=== PATIENT | male | born 1935 | race Caucasian/White ===

== ENCOUNTER 2017-03-05 16:53 | Inpatient (IN) | payer MEDICARE, OTHER ==
[~2017-03-05 16:53] MED LIST: AMLODIPINE BESYL5 MG PO; ANACIN TABLET1 TAB; ANTIBIOTIC; ASPIR 8181 MG PO; ASPIRIN325 MG; ASPIRIN325 MG PO; AVELOX400 M1 PO; CIPRO500 MG PO; COUMADIN5 MG PO; CULTURELLE1 EAC1 PO; FINASTERIDE5 M1 PO; FINASTERIDE5 M2 PO; FORTAMET500 MG PO; HYDROCODON-ACE1 EA16 PO; HYDROCODON-ACE1 EAC1 PO; IRON1 TAB; LISINOPRIL-HCTZ PO; LISINOPRIL20 MG PO; LOSARTAN-HCTZ1 EAC6 PO; METOPROLOL TART25 M1 PO; MILK OF MA400 MG/5 M PO; NAPROXEN500 M1 PO; NORCO 5-325 TA1 EACH PO; NORCO 5/325 TAB1 TAB PO; NORCO 7.5/3251 TA1 PO; NORVASC10 M1 PO; NORVASC10 MG PO; OMEPRAZOLE PO; OXYCONTIN10 M1 PO; PREVPAC PA1 COMB.PKG PO; PRILOSEC OTC20 MG PO; PROTONIX40 M1 PO; PROTONIX40 M2 PO; SENOKOT-S TABLE1 TAB PO; ST. JOSEPH ASP325 MG; STOOL SOFTENER; STOOL SOFTENER PO; TYLENOL PM EX-1 EACH PO; TYLENOL325 M1 PO; TYLENOL325 M2 PO; ZANTAC; ZANTAC150 MG
[2017-03-05 17:25] LABS: BASO % 0.2 % (0-2); IMMATURE GRANULOCYTES ABSOLUTE 0.04 tho/cmm (0-0.03); IMMATURE GRANULOCYTES PERCENT 0.3 % (0-0.3); LYMPH % 15.3 % (20-45); LYMPH ABSOLUTE COUNT 1.8 tho/cmm (0.8-4.5); MCH (MEAN CORPUSCULAR HGB) 28.4 pg (28.0-32.0); MCHC MEAN CORPUSCULAR HGB CONC 32.5 % (32.0-36.0); MCV (MEAN CELL VOLUME) 87.5 fl (82.0-96.0); MEAN PLATELET VOLUME 10.1 cmc (9.4-12.4); MONO % 11.2 % (0-12); MONOCYTE ABSOLUTE COUNT 1.3 tho/cmm (0.0-1.2); NEUTROPHIL ABSOLUTE COUNT 8.7 tho/cmm (1.6-8.0); NEUTROPHIL-AUTOMATED 8.7 tho/cmm (1.6-8.0); PLATELET COUNT 296 tho/cmm (150-450); RED BLOOD COUNT 4.57 mil/cmm (4.40-5.70); RED CELL DISTRIBUTION WIDTH 17.7 % (12.4-16.4); WHITE BLOOD COUNT 11.9 tho/cmm (4.0-10.0)
[2017-03-05] MEDS ORDERED: ZYLOPRIM100 M1 PO (17:41)
[2017-03-05 17:42] LABS: ANION GAP 16 mmol/L (0-20); BLOOD UREA NITROGEN 32 mg/dl (6-24); CALCIUM 8.7 mg/dl (8.5-10.5); CARBON DIOXIDE-VENOUS 22 mmol/L (22-32); CHLORIDE 107 mmol/l (96-110); GLUCOSE 100 mg/dL (70-110); POTASSIUM 4.2 mmol/L (3.7-5.1); SODIUM 141 mmol/L (135-145); eGFR VALUE FOR BLACK 82 mL/Min
[2017-03-05] MEDS ORDERED: ATIVAN1 M2 PO (17:42)
[2017-03-05] MEDS ORDERED: NASAL DECONGEST30 ML (17:43)
[2017-03-05] MEDS ORDERED: MUCUS RELIEF C237 M1 PO (17:50)
[2017-03-05 18:03] LABS: PROCALCITONIN 0.32 ng/ml (0.05-0.09)
[2017-03-05 22:03] LABS: URINE BILIRUBIN SMALL (NEG); URINE BLOOD SMALL (NEG); URINE GLUCOSE (UA) NEGATIVE (NEG); URINE KETONE SMALL (NEG); URINE LEUKOCYTE ESTERASE POSITIVE (NEG); URINE NITRITE NEGATIVE (NEG); URINE PROTEIN MODERATE (NEG); URINE SPECIFIC GRAVITY 1.025 (1.003-1.030)
[2017-03-05 22:04] LABS: URINE APPEARANCE CLOUDY; URINE COLOR DARK YELLOW
[2017-03-05 22:14] LABS: URINE AMORPHOUS 1+; URINE RBC RARE /[HPF] (0-5); URINE WBC 15-20 /[HPF] (0-5)
[2017-03-06 01:10] LABS: ALB/GLOB RATIO 0.8 (0.8-2.0); ALBUMIN 2.7 g/dl (3.5-5.0); ALKALINE PHOSPHATASE 96 U/L (33-138); ALT/SGPT 26 U/L (12-78); BLOOD UREA NITROGEN 32 mg/dl (6-24); CALCIUM 8.1 mg/dl (8.5-10.5); CARBON DIOXIDE-VENOUS 15 mmol/L (22-32); CHLORIDE 105 mmol/l (96-110); CREATININE 0.91 mg/dl (0.60-1.30); GLUCOSE 106 mg/dL (70-110); SODIUM 138 mmol/L (135-145); eGFR VALUE FOR BLACK >90 mL/Min
[2017-03-06 01:18] LABS: ANION GAP 22 mmol/L (0-20)
[2017-03-06 01:19] LABS: AST/SGOT 51 U/L (10-40); POTASSIUM 4.3 mmol/L (3.7-5.1)
[2017-03-06 13:43] LABS: ALB/GLOB RATIO 0.9 (0.8-2.0); ALBUMIN 2.7 g/dl (3.5-5.0)
[2017-03-07 05:30] LABS: BASO % 0.2 % (0-2); EOS % 1.7 % (0-7); EOSINOPHIL ABSOLUTE COUNT 0.2 tho/cmm (0.0-0.7); HCT-HEMATOCRIT 39.4 % (36.0-53.5); HGB-HEMOGLOBIN 12.6 gm/dl (13.5-17.0); IMMATURE GRANULOCYTES ABSOLUTE 0.02 tho/cmm (0-0.03); IMMATURE GRANULOCYTES PERCENT 0.2 % (0-0.3); LYMPH % 27.1 % (20-45); LYMPH ABSOLUTE COUNT 2.4 tho/cmm (0.8-4.5); MCH (MEAN CORPUSCULAR HGB) 27.7 pg (28.0-32.0); MCV (MEAN CELL VOLUME) 86.6 fl (82.0-96.0); MEAN PLATELET VOLUME 10.3 cmc (9.4-12.4); MONO % 11.7 % (0-12); NEUTROPHIL ABSOLUTE COUNT 5.1 tho/cmm (1.6-8.0); NEUTROPHIL-AUTOMATED 5.1 tho/cmm (1.6-8.0); NEUTROPHILS % 59.1 % (40-80); PLATELET COUNT 263 tho/cmm (150-450); RED BLOOD COUNT 4.55 mil/cmm (4.40-5.70); RED CELL DISTRIBUTION WIDTH 17.4 % (12.4-16.4); WHITE BLOOD COUNT 8.7 tho/cmm (4.0-10.0)
[2017-03-07 05:40] LABS: BLOOD UREA NITROGEN 24 mg/dl (6-24); CALCIUM 8.2 mg/dl (8.5-10.5); CHLORIDE 101 mmol/l (96-110); CREATININE 0.79 mg/dl (0.60-1.30); GLUCOSE 111 mg/dL (70-110); SODIUM 138 mmol/L (135-145); eGFR VALUE FOR BLACK >90 mL/Min
[2017-03-07 05:54] LABS: ANION GAP 16 mmol/L (0-20); CARBON DIOXIDE-VENOUS 24 mmol/L (22-32); POTASSIUM 3.2 mmol/L (3.7-5.1)
[2017-03-07 12:26] LABS: C-REACTIVE PROTEIN 2.3 mg/dl (0-0.9)
[2017-03-07 12:49] LABS: PROCALCITONIN 0.17 ng/ml (0.05-0.09)
[2017-03-08 05:50] LABS: BASO % 0.2 % (0-2); EOS % 0.5 % (0-7); HGB-HEMOGLOBIN 12.9 gm/dl (13.5-17.0); IMMATURE GRANULOCYTES ABSOLUTE 0.03 tho/cmm (0-0.03); IMMATURE GRANULOCYTES PERCENT 0.3 % (0-0.3); LYMPH % 22.6 % (20-45); MCH (MEAN CORPUSCULAR HGB) 27.8 pg (28.0-32.0); MCHC MEAN CORPUSCULAR HGB CONC 31.5 % (32.0-36.0); MCV (MEAN CELL VOLUME) 88.4 fl (82.0-96.0); MEAN PLATELET VOLUME 10.6 cmc (9.4-12.4); MONO % 10.7 % (0-12); MONOCYTE ABSOLUTE COUNT 0.9 tho/cmm (0.0-1.2); NEUTROPHIL ABSOLUTE COUNT 5.8 tho/cmm (1.6-8.0); NEUTROPHIL-AUTOMATED 5.8 tho/cmm (1.6-8.0); NEUTROPHILS % 65.7 % (40-80); PLATELET COUNT 289 tho/cmm (150-450); RED BLOOD COUNT 4.64 mil/cmm (4.40-5.70); RED CELL DISTRIBUTION WIDTH 17.4 % (12.4-16.4); WHITE BLOOD COUNT 8.8 tho/cmm (4.0-10.0)
[2017-03-08 05:51] LABS: ALBUMIN 3.1 g/dl (3.5-5.0); ANION GAP 16 mmol/L (0-20); BLOOD UREA NITROGEN 27 mg/dl (6-24); C-REACTIVE PROTEIN 1.9 mg/dl (0-0.9); CALCIUM 8.4 mg/dl (8.5-10.5); CARBON DIOXIDE-VENOUS 26 mmol/L (22-32); CHLORIDE 100 mmol/l (96-110); CREATININE 1.14 mg/dl (0.60-1.30); GLUCOSE 126 mg/dL (70-110); POTASSIUM 3.8 mmol/L (3.7-5.1); SODIUM 138 mmol/L (135-145); eGFR VALUE FOR BLACK 70 mL/Min
[2017-03-08 07:02] LABS: PROCALCITONIN 0.16 ng/ml (0.05-0.09)
== END 2017-03-08 09:00 | disposition other institution (70) | DRG 871 ==
LOC: EDMED 16:53 → PCUB 20:51
PROVIDERS: Emergency Medicine; Internal Medicine; Internal Medicine Infectious Disease; ADMIT Hospitalist
PROC: B24BZZ4 Ultrasonography of Heart with Aorta, Transesophageal (ICD-10-PCS; principal; 2017-03-07)
PROC: 05H633Z Insertion of Infusion Device into Left Subclavian Vein, Percutaneous Approach (ICD-10-PCS; 2017-03-07)
DX: A41.9 Sepsis, unspecified organism (principal); J18.9 Pneumonia, unspecified organism; I50.21 Acute systolic (congestive) heart failure; E46 Unspecified protein-calorie malnutrition; G92 Toxic encephalopathy; E11.9 Type 2 diabetes mellitus without complications; I27.2 Other secondary pulmonary hypertension; I11.0 Hypertensive heart disease with heart failure; I35.1 Nonrheumatic aortic (valve) insufficiency; Z79.84 Long term (current) use of oral hypoglycemic drugs; R79.89 Other specified abnormal findings of blood chemistry; K21.9 Gastro-esophageal reflux disease without esophagitis; M19.90 Unspecified osteoarthritis, unspecified site; Z85.46 Personal history of malignant neoplasm of prostate; I45.10 Unspecified right bundle-branch block; K27.9 Peptic ulcer, site unspecified, unspecified as acute or chronic, without hemorrhage or perforation; T42.4X5A Adverse effect of benzodiazepines, initial encounter; I05.9 Rheumatic mitral valve disease, unspecified; I07.1 Rheumatic tricuspid insufficiency; E87.6 Hypokalemia; I44.0 Atrioventricular block, first degree; Z68.26 Body mass index [BMI] 26.0-26.9, adult
CPT/HCPCS: C1751; C8925; C8929; G8996-GN-CI; G8997-GN-CH; G8999-GN-CH; G9158-GN-CH; G9186-GN-CH; J0456; J0696; J1650; J1940; J2250; J3010; J3480; J7050; Q9967